=== PATIENT | female | born 1945 | race Caucasian/White ===

== ENCOUNTER 2025-01-20 10:11 | Inpatient (IN) | payer BC, MEDICARE ==
[2025-01-20] MEDS: Ondansetron 4 MG Tab.DIS PO ONE (11:18)
[2025-01-20] MEDS: Acetaminophen/HYDROcodone 325-5 MG Tab PO ONE (11:19)
[2025-01-20 11:32] LABS: BASOPHILS ABSOLUTE AUTO 0.0 K/mm3 (0.0-0.2); BASOPHILS PERCENT AUTO 0.2 % (0.0-1.0); EOSINOPHILS ABSOLUTE AUTO 0.0 K/mm3 (0.0-0.4); EOSINOPHILS PERCENT AUTO 0.2 % (0.0-6.0); IMMATURE GRAN ABSOLUTE AUTO 0.09 K/mm3 (0.00-0.05); IMMATURE GRAN PERCENT AUTO 0.6 % (0.0-0.4); LYMPHOCYTES ABSOLUTE AUTO 0.7 K/mm3 (1.0-4.8); LYMPHOCYTES PERCENT AUTO 4.5 % (24.0-44.0); MEAN PLATELET VOLUME 9.1 fl (9.4-12.3); MONOCYTES ABSOLUTE AUTO 0.5 K/mm3 (0.0-0.8); MONOCYTES PERCENT AUTO 2.9 % (0.0-8.0); NEUTROPHILS ABSOLUTE AUTO 14.7 K/mm3 (1.8-7.7); NEUTROPHILS PERCENT AUTO 91.6 % (41.0-71.0); NRBC ABSOLUTE 0.00 (0.00-0.02); NRBC PERCENT 0.0 % (0.0-0.2); PLATELET COUNT,PLT 314 K/mm3 (150-400); RED BLOOD CELL COUNT 4.02 M/mm3 (4.10-5.30); WHITE BLOOD CELL COUNT,WBC 16.07 K/mm3 (3.9-11.3)
[2025-01-20 11:57] LABS: A/G RATIO 0.6 (1-2); ALANINE AMINOTRANSFERASE,ALT 16 U/L (14-59); ASPARTATE AMNIOTRANSFERASE,AST 26 U/L (15-37); BILIRUBIN TOTAL 0.8 mg/dL (0.2-1.0); BLOOD UREA NITROGEN,BUN 27 mg/dL (7-18); CARBON DIOXIDE,CO2 37 mEq/L (21-32); CHLORIDE,CL 96 mEq/L (98-107); CREATININE 1.1 mg/dL (0.55-1.02); ESTIMATED GFR 52 mL/min (>60); GLUCOSE RANDOM 170 mg/dL (70-99); POTASSIUM,K 4.0 mEq/L (3.5-5.1); PROTEIN TOTAL,TP 7.0 g/dl (6.4-8.2); SODIUM,NA 140 mEq/L (136-145)
[2025-01-20] MEDS ORDERED: Sodium Chloride 0.9% 10 ML Syringe FLUSH PRN (12:46)
[2025-01-20 13:10] LABS: INR 0.99
[2025-01-20 13:18] LABS: LACTIC ACID 1.1 mmol/L (0.4-2.0)
[2025-01-20 18:58] LABS: APPEARANCE,URINE CLEAR (Clear); GLUCOSE,URINE NEGATIVE (Negative); OCCULT BLOOD,URINE NEGATIVE (Negative)
[2025-01-20 19:07] LABS: SQUAMOUS EPITHELIAL CELLS,UR 0-5 /hpf (0-5)
[2025-01-20] MEDS: Budesonide 0.5 MG/2 ML Neb Susp NEB SCH (20:00)
[2025-01-21] MEDS: Albuterol 0.083% 2.5 MG/3 ML Neb Soln NEB PRN (03:05)
[2025-01-21 04:38] LABS: BASOPHILS ABSOLUTE AUTO 0.0 K/mm3 (0.0-0.2); BASOPHILS PERCENT AUTO 0.3 % (0.0-1.0); EOSINOPHILS ABSOLUTE AUTO 0.1 K/mm3 (0.0-0.4); EOSINOPHILS PERCENT AUTO 0.9 % (0.0-6.0); IMMATURE GRAN ABSOLUTE AUTO 0.06 K/mm3 (0.00-0.05); IMMATURE GRAN PERCENT AUTO 0.4 % (0.0-0.4); LYMPHOCYTES ABSOLUTE AUTO 2.1 K/mm3 (1.0-4.8); LYMPHOCYTES PERCENT AUTO 14.5 % (24.0-44.0); MEAN PLATELET VOLUME 9.5 fl (9.4-12.3); MONOCYTES ABSOLUTE AUTO 1.1 K/mm3 (0.0-0.8); MONOCYTES PERCENT AUTO 7.5 % (0.0-8.0); NEUTROPHILS ABSOLUTE AUTO 10.9 K/mm3 (1.8-7.7); NEUTROPHILS PERCENT AUTO 76.4 % (41.0-71.0); NRBC ABSOLUTE 0.00 (0.00-0.02); NRBC PERCENT 0.0 % (0.0-0.2); PLATELET COUNT,PLT 312 K/mm3 (150-400); RED BLOOD CELL COUNT 3.91 M/mm3 (4.10-5.30); WHITE BLOOD CELL COUNT,WBC 14.32 K/mm3 (3.9-11.3)
[2025-01-21 05:10] LABS: A/G RATIO 0.6 (1-2); ALANINE AMINOTRANSFERASE,ALT 14 U/L (14-59); ASPARTATE AMNIOTRANSFERASE,AST 22 U/L (15-37); BILIRUBIN TOTAL 0.4 mg/dL (0.2-1.0); BLOOD UREA NITROGEN,BUN 30 mg/dL (7-18); CARBON DIOXIDE,CO2 37 mEq/L (21-32); CHLORIDE,CL 99 mEq/L (98-107); CREATININE 1.2 mg/dL (0.55-1.02); EST CRCL DRUG DOSING (CG) 33.09 mL/min; ESTIMATED GFR 47 mL/min (>60); GLUCOSE RANDOM 132 mg/dL (70-99); POTASSIUM,K 4.0 mEq/L (3.5-5.1); PROTEIN TOTAL,TP 6.6 g/dl (6.4-8.2); SODIUM,NA 141 mEq/L (136-145)
[2025-01-21] MEDS: buPROPion 150 MG Tab.ER PO SCH (08:02)
[2025-01-21 09:23] LABS: CORONAVIRUS COVID-19 NAA NEGATIVE (NEGATIVE); INFLUENZA A NAA NEGATIVE (NEGATIVE); RESPIRATORY SYNCYTIAL VIR NAA NEGATIVE (NEGATIVE)
[2025-01-22 04:27] LABS: BASOPHILS ABSOLUTE AUTO 0.0 K/mm3 (0.0-0.2); BASOPHILS PERCENT AUTO 0.2 % (0.0-1.0); EOSINOPHILS ABSOLUTE AUTO 0.3 K/mm3 (0.0-0.4); EOSINOPHILS PERCENT AUTO 3.3 % (0.0-6.0); IMMATURE GRAN ABSOLUTE AUTO 0.04 K/mm3 (0.00-0.05); IMMATURE GRAN PERCENT AUTO 0.5 % (0.0-0.4); LYMPHOCYTES ABSOLUTE AUTO 1.4 K/mm3 (1.0-4.8); LYMPHOCYTES PERCENT AUTO 16.9 % (24.0-44.0); MEAN PLATELET VOLUME 9.3 fl (9.4-12.3); MONOCYTES ABSOLUTE AUTO 0.9 K/mm3 (0.0-0.8); MONOCYTES PERCENT AUTO 10.5 % (0.0-8.0); NEUTROPHILS ABSOLUTE AUTO 5.6 K/mm3 (1.8-7.7); NEUTROPHILS PERCENT AUTO 68.6 % (41.0-71.0); NRBC ABSOLUTE 0.00 (0.00-0.02); NRBC PERCENT 0.0 % (0.0-0.2); PLATELET COUNT,PLT 270 K/mm3 (150-400); RED BLOOD CELL COUNT 3.40 M/mm3 (4.10-5.30); WHITE BLOOD CELL COUNT,WBC 8.18 K/mm3 (3.9-11.3)
[2025-01-22 04:49] LABS: A/G RATIO 0.6 (1-2); ALANINE AMINOTRANSFERASE,ALT 14 U/L (14-59); ASPARTATE AMNIOTRANSFERASE,AST 22 U/L (15-37); BILIRUBIN TOTAL 0.3 mg/dL (0.2-1.0); BLOOD UREA NITROGEN,BUN 21 mg/dL (7-18); CARBON DIOXIDE,CO2 38 mEq/L (21-32); CHLORIDE,CL 102 mEq/L (98-107); CREATININE 1.0 mg/dL (0.55-1.02); EST CRCL DRUG DOSING (CG) 41.90 mL/min; ESTIMATED GFR 58 mL/min (>60); GLUCOSE RANDOM 131 mg/dL (70-99); POTASSIUM,K 3.4 mEq/L (3.5-5.1); PROTEIN TOTAL,TP 5.9 g/dl (6.4-8.2); SODIUM,NA 143 mEq/L (136-145)
[2025-01-22] MEDS: Potassium Chloride 20 MEQ Tab.ER PO ONE (08:46)
[2025-01-22] MEDS: methylPREDNISolone Sodium Succinate 40 MG/1 ML SDV IVPUSH SCH (11:07)
[2025-01-22] MEDS: Lactated Ringers 500 ML IV ONE (12:42)
[2025-01-23 05:11] LABS: BLOOD UREA NITROGEN,BUN 17.0 mg/dL (7-18); CARBON DIOXIDE,CO2 37.0 mEq/L (21-32); CHLORIDE,CL 102.0 mEq/L (98-107); CREATININE 0.7 mg/dL (0.55-1.02); EST CRCL DRUG DOSING (CG) 59.09 mL/min; ESTIMATED GFR 89.0 mL/min (>60); GLUCOSE RANDOM 145.0 mg/dL (70-99); PHOSPHORUS 3.1 mg/dL (2.6-4.7); POTASSIUM,K 4.8 mEq/L (3.5-5.1); SODIUM,NA 141.0 mEq/L (136-145)
[2025-01-23] MEDS: Magnesium Sulfate 2 GM/50 mL 2 GM in Premix Bag 1 BAG IV ONE (08:00)
[2025-01-23] MEDS: Magnesium Sulf/Wat 4 GM/50 mL 4 GM in Premix Bag 1 BAG IV ONE (10:52)
[2025-01-23] MEDS: Insulin Lispro 100 Unit/ML 3 ML KwikPen SUBCUT SCH (17:02)
[2025-01-23] MEDS: methylPREDNISolone Sodium Succinate 40 MG/1 ML SDV IVPUSH SCH (21:12)
[2025-01-24 05:37] LABS: BASOPHILS ABSOLUTE AUTO 0.0 K/mm3 (0.0-0.2); BASOPHILS PERCENT AUTO 0.4 % (0.0-1.0); EOSINOPHILS ABSOLUTE AUTO 0.1 K/mm3 (0.0-0.4); EOSINOPHILS PERCENT AUTO 1.5 % (0.0-6.0); IMMATURE GRAN ABSOLUTE AUTO 0.04 K/mm3 (0.00-0.05); IMMATURE GRAN PERCENT AUTO 0.5 % (0.0-0.4); LYMPHOCYTES ABSOLUTE AUTO 1.5 K/mm3 (1.0-4.8); LYMPHOCYTES PERCENT AUTO 17.6 % (24.0-44.0); MEAN PLATELET VOLUME 9.1 fl (9.4-12.3); MONOCYTES ABSOLUTE AUTO 0.7 K/mm3 (0.0-0.8); MONOCYTES PERCENT AUTO 8.9 % (0.0-8.0); NEUTROPHILS ABSOLUTE AUTO 5.9 K/mm3 (1.8-7.7); NEUTROPHILS PERCENT AUTO 71.1 % (41.0-71.0); NRBC ABSOLUTE 0.00 (0.00-0.02); NRBC PERCENT 0.0 % (0.0-0.2); PLATELET COUNT,PLT 322 K/mm3 (150-400); RED BLOOD CELL COUNT 3.65 M/mm3 (4.10-5.30); WHITE BLOOD CELL COUNT,WBC 8.24 K/mm3 (3.9-11.3)
[2025-01-24 06:25] LABS: BLOOD UREA NITROGEN,BUN 19.0 mg/dL (7-18); CREATININE 0.8 mg/dL (0.55-1.02); EST CRCL DRUG DOSING (CG) 52.59 mL/min; ESTIMATED GFR 76.0 mL/min (>60); GLUCOSE RANDOM 113.0 mg/dL (70-99)
[2025-01-24 06:41] LABS: CHLORIDE,CL 101.0 mEq/L (98-107); POTASSIUM,K 4.0 mEq/L (3.5-5.1); SODIUM,NA 143.0 mEq/L (136-145)
[2025-01-24 06:56] LABS: CARBON DIOXIDE,CO2 40.0 mEq/L (21-32)
[2025-01-24] MEDS: Magnesium Sulf/Wat 4 GM/50 mL 4 GM in Premix Bag 1 BAG IV ONE (10:09)
== END 2025-01-24 12:42 | DRG 871 ==
LOC: JD.ED 10:11 → JD.MS 12:32
PROVIDERS: ADMIT Family Medicine; ATTEND Student in an Organized Health Care Education/Training Program
DX: J18.1 Lobar pneumonia, unspecified organism (principal); J98.4 Other disorders of lung; A41.9 Sepsis, unspecified organism; J18.9 Pneumonia, unspecified organism; J96.21 Acute and chronic respiratory failure with hypoxia; J44.0 Chronic obstructive pulmonary disease with (acute) lower respiratory infection; J44.1 Chronic obstructive pulmonary disease with (acute) exacerbation; M54.59 Other low back pain; Z66 Do not resuscitate; G89.29 Other chronic pain; Z99.81 Dependence on supplemental oxygen; I25.10 Atherosclerotic heart disease of native coronary artery without angina pectoris; I50.9 Heart failure, unspecified; I11.0 Hypertensive heart disease with heart failure; E78.00 Pure hypercholesterolemia, unspecified; D86.0 Sarcoidosis of lung; J84.10 Pulmonary fibrosis, unspecified; E09.9 Drug or chemical induced diabetes mellitus without complications; I25.2 Old myocardial infarction; K21.9 Gastro-esophageal reflux disease without esophagitis; F41.9 Anxiety disorder, unspecified; F32.A Depression, unspecified; Z88.1 Allergy status to other antibiotic agents; Z88.0 Allergy status to penicillin; Z88.5 Allergy status to narcotic agent; Z79.899 Other long term (current) drug therapy; Z79.52 Long term (current) use of systemic steroids; Z79.84 Long term (current) use of oral hypoglycemic drugs; Z87.442 Personal history of urinary calculi; Z98.890 Other specified postprocedural states; Z98.49 Cataract extraction status, unspecified eye; Z87.891 Personal history of nicotine dependence; E86.0 Dehydration
CPT/HCPCS: 36415; 71045; 80053; 83605; 85025; 85610; 86140; 99285; A9270 ×3; 80048; 81001; 82947; 83735; 84100; 87040; 87637; 87641; 94640; 94760; 94761; 97110-GP; 97112-GP; 97161-GP; 97530-GP; 99223; 99233; 99239; J0696; J1650; J2919; J3475; J3490; J7030; J7120; J7512